=== PATIENT | female | born 1965 | race Hispanic/Latino ===

== ENCOUNTER 2019-03-03 21:37 | Inpatient (IN) ==
[2019-03-03 22:18] LABS: URINE SOURCE CLEAN CATCH
[2019-03-03 23:01] LABS: BILIRUBIN URINE NEGATIVE (NEGATIVE); BLOOD URINE TRACE (NEGATIVE); COLOR YELLOW; GLUCOSE URINE NEGATIVE (NEGATIVE); KETONE URINE NEGATIVE (NEGATIVE); LEUKOCYTES URINE MODERATE (NEGATIVE); NITRITE URINE NEGATIVE (NEGATIVE); PH URINE 7.5; PROTEIN URINE TRACE mg/dL (NEGATIVE); SP GRAVITY URINE 1.019; TURBIDITY URINE CLEAR (CLEAR); UR EPITHELIAL CELLS <10 /HPF (<10); URINE BACTERIA NEGATIVE /HPF; URINE RBC <10 /HPF (<10); URINE WBC 20-40 /HPF (<10); UROBILINOGEN URINE NORMAL (NORMAL)
[2019-03-04] MEDS ORDERED: ZOFRAN IM ONE (00:33)
[2019-03-04] MEDS ORDERED: BENTYL IM ONE (00:34)
--- NOTE | 2019-03-04 01:57 | PROVIDER DOCUMENTATION ---
This chart was entered by Ghislaine Bradshaw Scribe, acting as scribe for Carlyle Pantoja MD. HPI-Abdominal Pain/GI Problem - General Source: patient, interpreter deaf (ID: [id number] : interpreter deaf ID) - History of Present Illness-ABD Nature of Presenting Problems: Pt is 53/F presenting to ED w/ ABD pain and Nausea. Pt has hx of colorectal cancer and now has colostomy. Pt sts that she had beef tacos for dinner and then soon after started having epigastric pain and nausea. Denies any vomiting. Abdominal Pain Onset Location: reports: epigastric Pain Radiation: reports: no radiation Quality of Pain: reports: aching, other Severity in ED: reports: moderate Onset/Duration: reports: just prior to arrival Timing: reports: still present Activities at Onset: reports: none Exposure to sick contacts?: No Modifying Factors: improves with: nothing Associated Symptoms: reports: nausea. denies: diarrhea, vomiting Emesis Description: reports: none <Carlyle Pantoja - Last Filed: 03/04/19 19:00> <Julita Haley - Last Filed: 03/04/19 20:16> - General Chief Complaint: Abdominal Pain Stated Complaint: SEVERE STOMACH PAIN AFTER EATING Time Seen by Provider: 03/04/19 00:09 Allergies/Adverse Reactions: Patient Allergies Allergy/AdvReac Type Severity Reaction Status Date / Time No Known Allergies Allergy Verified 03/04/19 05:49 Home Medications: Home Medication List Medication Instructions Recorded Confirmed Last Taken Type NK [No Home Medications] 03/04/19 03/04/19 Unknown History Review of Systems - Adult - REVIEW OF SYSTEMS - ADULT Gastrointestinal: reports: see HPI <Carlyle Pantoja - Last Filed: 03/04/19 19:00> - REVIEW OF SYSTEMS - ADULT Constitutional: reports: no symptoms reported Eyes: reports: no symptoms reported Ears, Nose, Mouth & Throat: reports: no symptoms reported Cardiovascular: reports: no symptoms reported Respiratory: reports: no symptoms reported Gastrointestinal: reports: no symptoms reported Genitourinary: reports: no symptoms reported Musculoskeletal: reports: no symptoms reported Integumentary: reports: no symptoms reported Neurological: reports: no symptoms reported Psychiatric: reports: no symptoms reported Endocrine: reports: no symptoms reported Hematologic/Lymphatic: reports: no symptoms reported Allergic/Immunologic: reports: no symptoms reported All Other Systems: Reviewed and Negative <Julita Haley - Last Filed: 03/04/19 20:16> Past History - Adult - PAST MEDICAL HISTORY-ADULT Review of Records: reports: Old Records Reviewed, Nursing Assessment Review, Medications Reviewed, Social history reviewed & non-contributory. Major Childhood Illnesses: reports: denies history Cardiovascular: reports: denies history Respiratory: reports: denies history Gastrointestinal: reports: cancer Genitourinary: reports: denies history Musculoskeletal: reports: denies history Neurological: reports: denies history Psychiatric: reports: denies history Endocrine/Immune: reports: denies history Other Conditions: reports: denies history - SOCIAL HISTORY Smoking: denies, non-smoker <Carlyle Pantoja - Last Filed: 03/04/19 19:00> Physical Exam-General - CONSTITUTIONAL General Appearance: alert, mild distress - RESPIRATORY Respiratory: lungs clear, normal breath sounds - CARDIOVASCULAR Cardiovascular: normal peripheral pulses, regular rate, rhythm, no edema - GASTROINTESTINAL (ABDOMEN) Abdominal Exam: normal bowel sounds, soft, tenderness (epigastric area), other (colostomy bag in LLQ) - NEUROLOGIC Neurologic: grossly normal - PSYCHIATRIC Psych/Mental Status: normal thought content, normal thought process <Carlyle Pantoja - Last Filed: 03/04/19 19:00> Progress - PLAN OF CARE/RESULTS Progress/Plan/Lab Results: Vital Signs - 8 hr 03/03/19 21:48 Temperature 97.8 F Pulse Rate 74 Respiratory Rate 15 Blood Pressure 148/74 O2 Sat by Pulse Oximetry 100 Laboratory Results - last 24 hr 03/03/19 03/03/19 21:54 21:54 Urine Source CLEAN CATCH Urine Color YELLOW Urine Turbidity CLEAR Urine pH 7.5 Ur Specific [place] 1.019 Urine Protein TRACE A Ur Glucose (Stick) NEGATIVE Ur Ketones (Stick) NEGATIVE Urine Blood TRACE A Urine Nitrite NEGATIVE Urine Bilirubin NEGATIVE Urobilinogen Dipstick NORMAL Urine Leukocytes MODERATE A Urine WBC (Auto) 20-40 A Urine RBC (Auto) <10 U Epithel Cells (Auto) <10 Urine Bacteria (Auto) NEGATIVE Urine Test NEGATIVE Orders Category Date Time Status Saline Loc DIRECTED Care 03/03/19 22:09 Active NPO Diet 03/03/19 22:09 Active AMYLASE [CHEM] Stat Lab 03/03/19 22:10 Ordered CBC WITH ELECTRONIC DIFF [HEME] Stat Lab 03/03/19 22:10 Ordered COMPREHENSIVE METABOLIC PANEL [CHEM] Stat Lab 03/03/19 22:10 Ordered LIPASE [CHEM] Stat Lab 03/03/19 22:10 Ordered TEST-URINE [PREG] Stat Lab 03/03/19 21:54 Completed URINALYSIS W/POSS RFLX CULT [URINALYSIS] Stat Lab 03/03/19 21:54 Completed URINE CULTURE [RM] Routine Lab 03/03/19 23:36 Received Dicyclomine [Bentyl] Med 03/04/19 00:34 Discontinued 20 mg IM NOW ONE Ondansetron [Zofran] Med 03/04/19 00:33 Discontinued 8 mg IM NOW ONE Result Diagrams: 03/03/19 01:50 03/03/19 01:50 - CHANGE OF SHIFT REPORT (ED Provider) 1 Report Given and Care Transferred to:: Dr. Julita Haley Time of Transfer: 02:00 Items Pending: Labs (Pt Hx, PE and pt care discussed, pending labs.) <Lake-Carlyle Caballero - Last Filed: 03/04/19 19:00> - PLAN OF CARE/RESULTS Progress/Plan/Lab Results: Vital Signs - 8 hr 03/03/19 21:48 Temperature 97.8 F Pulse Rate 74 Respiratory Rate 15 Blood Pressure 148/74 O2 Sat by Pulse Oximetry 100 Laboratory Results - last 24 hr 03/03/19 03/03/19 03/03/19 01:50 01:50 21:54 WBC 14.36 H RBC 4.75 Hgb 14.1 Hct 43.4 MCV 91.4 MCH 29.7 MCHC 32.5 L RDW Std Deviation 13.2 Plt Count 349 MPV 9.6 Immature Gran % (Auto) 0.3 Neut % (Auto) 71.1 Lymph % (Auto) 24.1 Wilson % (Auto) 4.3 Eos % (Auto) 0.1 Baso % (Auto) 0.1 Immature Gran # (Auto) 0.04 Neut # (Auto) 10.20 H Lymph # (Auto) 3.46 H Wilson # (Auto) 0.62 H Eos # (Auto) 0.02 Baso # (Auto) 0.02 Sodium 141 Potassium 4.0 Chloride 102 Carbon Dioxide 25 Anion Gap 14 BUN 15 Creatinine 0.6 Estimated GFR/1.73 m2 > 60 BUN/Creatinine Ratio 25 Glucose 142 H Calculated Osmolality 285 Calcium 9.5 Total Bilirubin 0.26 AST 24 ALT 33 Alkaline Phosphatase 92 Total Protein 8.2 Albumin 4.5 Globulin 3.7 Albumin/Globulin Ratio 1.2 Amylase 55 Lipase 25 Urine Source Urine Color Urine Turbidity Urine pH Ur Specific [place] Urine Protein Ur Glucose (Stick) Ur Ketones (Stick) Urine Blood Urine Nitrite Urine Bilirubin Urobilinogen Dipstick Urine Leukocytes Urine WBC (Auto) Urine RBC (Auto) U Epithel Cells (Auto) Urine Bacteria (Auto) Urine Test NEGATIVE 03/03/19 21:54 WBC RBC Hgb Hct MCV MCH MCHC RDW Std Deviation Plt Count MPV Immature Gran % (Auto) Neut % (Auto) Lymph % (Auto) Wilson % (Auto) Eos % (Auto) Baso % (Auto) Immature Gran # (Auto) Neut # (Auto) Lymph # (Auto) Wilson # (Auto) Eos # (Auto) Baso # (Auto) Sodium Potassium Chloride Carbon Dioxide Anion Gap BUN Creatinine Estimated GFR/1.73 m2 BUN/Creatinine Ratio Glucose Calculated Osmolality Calcium Total Bilirubin AST ALT Alkaline Phosphatase Total Protein Albumin Globulin Albumin/Globulin Ratio Amylase Lipase Urine Source CLEAN CATCH Urine Color YELLOW Urine Turbidity CLEAR Urine pH 7.5 Ur Specific [place] 1.019 Urine Protein TRACE A Ur Glucose (Stick) NEGATIVE Ur Ketones (Stick) NEGATIVE Urine Blood TRACE A Urine Nitrite NEGATIVE Urine Bilirubin NEGATIVE Urobilinogen Dipstick NORMAL Urine Leukocytes MODERATE A Urine WBC (Auto) 20-40 A Urine RBC (Auto) <10 U Epithel Cells (Auto) <10 Urine Bacteria (Auto) NEGATIVE Urine Test Orders Category Date Time Status Saline Loc DIRECTED Care 03/03/19 22:09 Active NPO Diet 03/03/19 22:09 Active AMYLASE [CHEM] Stat Lab 03/03/19 01:50 Completed CBC WITH ELECTRONIC DIFF [HEME] Stat Lab 03/03/19 01:50 Completed COMPREHENSIVE METABOLIC PANEL [CHEM] Stat Lab 03/03/19 01:50 Completed LIPASE [CHEM] Stat Lab 03/03/19 01:50 Completed TEST-URINE [PREG] Stat Lab 03/03/19 21:54 Completed URINALYSIS W/POSS RFLX CULT [URINALYSIS] Stat Lab 03/03/19 21:54 Completed URINE CULTURE [RM] Routine Lab 03/03/19 23:36 Received Dicyclomine [Bentyl] Med 03/04/19 00:34 Discontinued 20 mg IM NOW ONE Ondansetron [Zofran] Med 03/04/19 00:33 Discontinued 8 mg IM NOW ONE Result Diagrams: 03/03/19 01:50 03/03/19 01:50 - REASSESSMENT Reassessment #1 Status: improving (pt signed out to me pending labs results, pt with continued pain and reports that she has not had any output from her ostomy since yesterday. Concerning for SBO will further evaluate with CT.) Reassessment #2 Status: improving (Pain improved, CT consistent with SBO. NG placed and will admit. Discussed case with Dr. Zuniga, general surgeon control supervisor who will evaluate pt this am and would like pt admitted to the hospitalist. Discussed case with Dr. Lockett, Hospitalist, who will see and admit pt.) - CT/MRI 1 CT Study: Abdomen, Pelvis Impression: Abnormal (Per radiologist read: "early complete vs partial SBO involving the distal small bowel likely due to adhesions") <Julita Haley - Last Filed: 03/04/19 20:16> Departure - Departure Date of Disposition Decision: 03/04/19 Certified Medical Emergency: Emergent - Critical Care Note This patient required my direct & personal management of CC.: No <Carlyle Pantoja - Last Filed: 03/04/19 19:00> - Departure Time of Disposition Decision: 05:39 <Julita Haley - Last Filed: 03/04/19 20:16> - Departure DIAGNOSIS: Small bowel obstruction Disposition: ADMITTED INPATIENT 09 Condition: Stable Attestation - Physician/ ARIAN Attestation Patient care was provided by Advanced Practice Provider:: No The physician spent face to face time with patient:: Yes Advanced Practice Provider documentation review:: Supervising physician onsite and consulted in the evaluation and care of this patient. The physician did have a face to face encounter with the patient. <Carlyle Pantoja - Last Filed: 03/04/19 19:00> This chart was documented by the indicated scribe, (Ghislaine Bradshaw, Scribe) and accurately reflects the services I performed and decisions made by me, Carlyle Deutsch MD, as attested by the provider's signature.
[2019-03-04 02:02] LABS: BASO# 0.02 X1000 (0.0-0.2); BASO% 0.1 % (0.0-0.8); EOS# 0.02 X1000 (0.0-0.7); EOS% 0.1 % (0.0-10.0); HEMATOCRIT 43.4 % (37.0-47.0); HEMOGLOBIN 14.1 g/dL (12.0-16.0); IMM GRAN# 0.04 X1000 (0.0-0.04); IMM GRAN% 0.3 % (0.0-0.5); LYMPH# 3.46 X1000 (1.2-3.4); LYMPH% 24.1 % (20.5-51.1); MCH 29.7 PG (27-31); MCHC 32.5 g/dL (33-37); MCV 91.4 FL (81-99); MONO# 0.62 X1000 (0.11-0.59); MONO% 4.3 % (1.7-9.3); MPV 9.6 FL (7.4-10.4); NEUT% 71.1 % (42.2-75.2); PLT 349 X1000 (130-400); RBC 4.75 XMIL (4.2-5.4); RDW 13.2 % (11.5-14.5); WBC 14.36 X1000 (4.8-10.8)
[2019-03-04 02:42] LABS: AGAP 14; ALB/GLOB RATIO 1.2; ALBUMIN 4.5 g/dL (3.5-5.0); ALKALINE PHOSPHATASE 92 U/L (32-104); AMYLASE 55 U/L (20-200); BUN 15 mg/dL (8-22); CALCIUM 9.5 mg/dL (8.8-10.2); CHLORIDE 102 mmol/L (98-107); COSMO 285; CREATININE 0.6 mg/dL (0.5-0.9); ESTIMATED GFR > 60; GLUCOSE 142 mg/dL (70-104); GOT 24 U/L (10-30); GPT 33 U/L (10-36); LIPASE 25 U/L (13-60); SODIUM 141 mmol/L (136-145); TCO2 25 mmol/L (25-35); TOTAL BILIRUBIN 0.26 mg/dL (0.20-1.00); TOTAL PROTEIN 8.2 g/dL (6.3-8.3)
[2019-03-04] MEDS ORDERED: ZOFRAN IV ONE ×2 (03:00→09:01)
[2019-03-04] MEDS ORDERED: MORPHINE IV ONE ×2 (03:00→09:01)
[2019-03-04] MEDS ORDERED: NS 1,000 ML IV ONE (03:00)
[2019-03-04] MEDS ORDERED: XYLOCAINE 2% VISCOUS MT ONE (05:41)
--- NOTE | 2019-03-04 06:59 | Diag Imaging Result Doc PS360 ---
EXAM: CHEST-PORTABLE 03/04/2019 HISTORY: NG Tube Placment. TECHNIQUE: AP portable at 0640 COMMENT: There is an NG tube with its tip below the diaphragm presumably in the stomach. Inspiration is suboptimal. There are no previous studies. The lungs appear to be essentially clear. IMPRESSION: NG tube in the stomach. Electronically signed by Andrew Martinez 03/04/2019 6:56 AM
--- NOTE | 2019-03-04 07:02 | Diag Imaging Result Doc PS360 ---
EXAM: KUB ABDOMEN 03/04/2019 HISTORY: NG Tube Placement. TECHNIQUE: KUB COMMENT: The NG tube tip is in the antrum of the stomach. There is contrast excreted from both kidneys and filling the bladder. There is a nonspecific bowel gas pattern. There is no evidence organomegaly or mass. IMPRESSION: NG tube in the stomach. No evidence of hydronephrosis or other acute abnormality. Electronically signed by Andrew Martinez 03/04/2019 6:59 AM
--- NOTE | 2019-03-04 08:47 | Diag Imaging Result Doc PS360 ---
EXAM: CT ABD/PELVIS W/IV CONT ONLY INDICATION: abdominal pain r/o obstruction TECHNIQUE: This exam was performed using automated exposure control, adjustment of mA or kV according to patient size, and/or use of iterative reconstruction technique. COMPARISON: None. FINDINGS: There is moderate hepatic steatosis. The gallbladder, spleen, pancreas, and adrenal glands are essentially unremarkable. The kidneys are essentially unremarkable. The urinary bladder is partially distended and is unremarkable, otherwise. The reproductive tract is grossly unremarkable as imaged. There has been a prior partial colon resection and there is a patent colostomy at the left lower quadrant. There are moderately distended loops of the mid to distal small bowel in the pelvis with internal feculent material. The distal ileum is decompressed. This distention is suspicious for partial or early complete bowel obstruction. There is trace free fluid around loops of bowel in the pelvis. No free abdominal gas is appreciated. The remainder of the GI tract is essentially unremarkable. IMPRESSION: 1.Moderately distended loops of small bowel in the pelvis with internal feculent material suspicious for partial versus early complete bowel obstruction. 2.Other incidental/nonacute findings detailed above. Electronically signed by Hammad Mendez 03/04/2019 8:45 AM
[2019-03-04] MEDS: MORPHINE IV PRN ×3 (12:07→23:30)
[2019-03-04] MEDS: NS 1,000 ML IV SCH (12:07)
[2019-03-04] MEDS: ZOFRAN IV PRN (12:10)
[2019-03-04] MEDS: KEFZOL 1 GM/D5W 1 GM/50 ML IVPB IV SCH ×2 (13:27→20:43)
[2019-03-04] MEDS ORDERED: SODIUM CHLORIDE 0.9% INJ ONE (14:04)
[2019-03-04] MEDS ORDERED: PHENERGAN IV ONE (14:05)
[2019-03-04] MEDS: PROTONIX IV SCH (14:48)
[2019-03-04] MEDS: SODIUM CHLORIDE 0.9% INJ SCH (14:48)
--- NOTE | 2019-03-04 18:24 | HEMO/ONC CONSULTATION ---
DATE: 03/03/2019 PATIENT NAME: Kay Trinh (Per). REQUESTING PHYSICIAN: Dr. Edwards. We appreciate this consult. CHIEF COMPLAINT: Colon cancer. HISTORY OF PRESENT ILLNESS: Ms. Albarado is a very pleasant, 53-year-old, female, well known to Dr. Urias with a history of recurrent colon adenocarcinoma. The patient has a history of complete obstruction and is status post partial resection with colostomy placement. She has completed adjuvant chemotherapy. The patient is followed regularly in clinic and has been doing fairly well until the day of admission. The patient reports that she ate dinner last night and then began having epigastric pain and nausea. The patient denies any vomiting. The patient presented to [facility] Emergency Department where she was examined. CT of the abdomen and pelvis were obtained which revealed moderately distended loops of small bowel in the pelvis with internal feculent material suspicious for partial versus early complete bowel obstruction. The patient was admitted for the same and we are consulted as she is well known to us with a history of colon adenocarcinoma. PAST MEDICAL HISTORY: 1. Colon adenocarcinoma. 2. Iron deficiency anemia. 3. Neuropathy. PAST SURGICAL HISTORY: Partial colectomy with colostomy placement. FAMILY HISTORY: Negative for any hematologic or oncologic disease. SOCIAL HISTORY: The patient does not use tobacco, alcohol, or illicit drugs. She lives at home with a supportive family. MEDICATIONS ON ADMISSION: 1. Dicyclomine. 2. Ondansetron. ALLERGIES: Patient has no known drug allergies. REVIEW OF SYSTEMS: A 14 point review of systems was obtained and is negative except as mentioned in HPI. PHYSICAL EXAMINATION: General: Ms. Albarado is a very pleasant, 53-year-old female lying supine in bed in no immediate distress. HEENT: Normocephalic, atraumatic. Mucous membranes are pink and moist. Sclerae anicteric. Extraocular movements intact. Neck: Supple. Lungs: Clear to auscultation bilaterally. Chest expansion equal bilaterally. CV: S1, S2 heard. No murmurs, rubs or gallops. Abdomen: Slightly distended and soft. Tender to palpation throughout. Bowel sounds are decreased throughout. Extremities: Without clubbing, cyanosis, or edema. Dermatologic: No rashes bruises or lesions. Neurologic: The patient is awake, alert, and oriented x3 and has no focal motor deficit. LABORATORY DATA: Hemoglobin 14.1, hematocrit 43.4, white blood cell count 14.36, platelets 349,000. Sodium 141, potassium 4.0, chloride 102, CO2 25, BUN 15, creatinine 0.6, and glucose is 142. Urinalysis is negative for urinary tract infection. ASSESSMENT AND PLAN: 1. T3,N0,M0 sigmoid adenocarcinoma, status post partial resection and permanent colostomy, as well as adjuvant chemotherapy/radiation treatment. The patient has been followed in clinic regularly with regular imaging. However, the patient presents to [facility] with questionable bowel obstruction. We agree with consulting Surgery. The patient will be scheduled for colonoscopy on Thursday. We will follow along and make recommendations pending outcomes. 2. Nausea, secondary to number 1. Would continue Zofran as ordered. 3. We will follow along with you and make further recommendations pending outcomes. The above reflects the history, exam, assessment, and plan of Dr. Urias. Dictated by SERGEY Aggarwal for David Urias MD cc: SERGEY Aggarwal MD
--- NOTE | 2019-03-04 19:05 | HISTORY AND PHYSICAL ---
PRIMARY CARE PHYSICIAN: The patient does not have a layup worker. CHIEF COMPLAINT: Abdominal pain. HISTORY OF PRESENT ILLNESS: Ms. Trinh is a 53-year-old, female, who came to the ER today complaining of abdominal pain. This started last p.m. She has also had some vomiting with this abdominal pain. The patient states that she had a partial colectomy done over 6 years ago with end-colostomy placed due to cancer of the colorectal, and is followed by Dr. Urias routinely for this cancer. She states that her colostomy has not put out anything since yesterday and after she ate dinner last night she started vomiting. The patient is lying in the ER stretcher with a NG tube in place to low wall suction. She complains of some abdominal tenderness upon palpation. Bowel sounds are present. The patient denies any blood in her stool. Denies any vomiting of blood. The patient does not appear to be short of breath or having any other problems noted. Hospital phone flight teacher used for this History and Physical PAST MEDICAL HISTORY: Cancer of the colorectal with colostomy placement. Chemotherapy after her colorectal surgery. The patient states she also has been seeing Dr. Urias for some sort of a spot on her lung, not sure if it is cancerous. The patient states she saw Dr. Urias in January. PAST SURGICAL HISTORY: Colostomy placement 6 years ago at [facility] by Dr. Felix. The patient has also had a had a port placed to her left subclavian that has since been removed. This was for her chemotherapy 6 years ago. FAMILY HISTORY: Mother had diabetes and from a heart attack. Father at a young age from colorectal cancer. MEDICATIONS: The patient states she does not take any home medications. ALLERGIES: No known drug allergies. LABS AND DIAGNOSTICS: Sodium 141, potassium 4.0, carbon dioxide 25, BUN 15, creatinine 0.6, glucose 142, bilirubin 0.26, AST 24, ALT 33, alkaline phosphatase 92, amylase 55, lipase 25. White blood cell count 14.36, hemoglobin 14.1, hematocrit 43.4, platelets 349. Urinalysis negative. Urine culture shows no growth at this present time. CT of the abdomen and pelvis done on 03/04, shows moderately distended bowel loops in the pelvis with internal feculent material suspicious for partial versus early complete bowel obstruction. Abdominal x-ray done on 03/04 shows an NG tube in the stomach with no hydronephrosis or other acute abnormality. Chest x-ray done on 03/04, shows lungs are clear. REVIEW OF SYSTEMS: A 14 point review of system was done. All negative except for what is stated above in HPI. PHYSICAL EXAM: VITALS: Pulse rate 75, respiratory rate 18, blood pressure 124/63, temperature 97.8, O2 saturation 97% on room air. GENERAL: This is a 53-year-old, female, lying in bed, in no acute distress. Able to answer questions appropriately with flight teacher. HEENT: Atraumatic, normocephalic. Eyes, pupils equal, round, reactive to light. No extraocular movement identified. Sclerae icteric. Mucous membranes dry. NECK: Supple. No lymphadenopathy. Trachea is midline. No JVD. CV: No murmur, gallop, or rub. Regular rate and rhythm noted. S1, S2 noted. RESPIRATORY: Lungs are clear. Equal to chest expansion. The patient is nonlabored and does not use accessory muscles. GI: Abdomen is soft and tender to palpation. Bowel sounds are present. There is a colostomy noted to the left quadrant. : Patient denies any dysuria. States urine has been clear. NEURO: The patient is awake, alert, and oriented. Able to answer all questions appropriately and follows commands. Cranial nerves intact. MUSCULOSKELETAL: Full strength noted. No deformities. EXTREMITIES: No clubbing, cyanosis, or edema noted. DP and PT pulses are palpable +2. SKIN: Warm, dry, intact. No rashes, bruises noted. ASSESSMENT AND PLAN: 1. Small bowel obstruction. Dr. Felix is consulted. Nasogastric tube is intact to low wall suction. Will keep the patient n.p.o. and give nausea medicines and pain medicines as needed. 2. Colon cancer and possible lung spot. Dr. Urias-consulted. The patient is known to him. 3. Abdominal pain, p.r.n. pain medications ordered. 4. Colostomy management. Wound care consulted for management of the colostomy. Will admit to the medical floor consult Dr. Felix and Dr. Kumar. Will repeat all labs in the morning and continue IV hydration. Nausea and pain medications for this patient. Dictated by SERGEY Frausto for Evangelist Edwards MD cc: MD David Jain MD Hugh C. Nabers, MD Patient seen and examined by me. Presenting with vomiting related to bowel obstruction. I agree with the assessment and plan of the REFERRAL AND INFORMATION AIDE. Dr. Edwards. [facility]
--- NOTE | 2019-03-04 19:32 | GASTROENTEROLOGY CONSULTATION ---
DATE: 03/04/2019 REASON FOR CONSULTATION: History of rectal cancer who presents with small-bowel obstruction. HISTORY OF PRESENT ILLNESS: Ms Kay Trinh is a 53-year-old woman with past medical history of rectal cancer status post APR about 31 years ago and chemoradiation with recurrence 5 years ago requiring partial colectomy and revision of her colostomy by Dr. Felix and chemotherapy as well. She presents today with acute onset nausea, vomiting, abdominal pain that started around 9:30 last evening. She was at her usual state of health prior to this. She says that she had tacos that evening and then several hours later started having abdominal pain. Her pain is severe 10/10 diffuse. She has not had a bowel movement since last evening. She typically has 2 normal bowel movements per day. No rectal bleeding, hematemesis, fevers, chest pain, shortness of breath, abnormal weight loss. She is followed by Dr. Urias and is in clinical remission. No sick contacts. She is not on any medications. REVIEW OF SYSTEMS: As per HPI, otherwise 12 point review of systems is negative. PAST MEDICAL HISTORY: As per HPI. PAST SURGICAL HISTORY: APR 31 years ago 5 years ago required partial colectomy for recurrence. FAMILY HISTORY: Father with presumably colon cancer. SOCIAL HISTORY: No smoking, alcohol or drug use. MEDICATIONS: None. ALLERGIES: No known drug allergies. PHYSICAL EXAMINATION: Vital Signs: Temperature is 98.6 degrees, heart rate is 73, respiratory rate 20, blood pressure 135/61, O2 saturation 100% on room air. General: The patient is ill- appearing in acute distress from nausea, vomiting, and abdominal pain. HEENT: Sclerae anicteric. Extraocular motor intact. Moist mucous membranes. NG tube in place with bilious fluid draining. Neck: Supple. No JVD. Cardiac: Regular rate and rhythm. No murmurs, rubs, or gallops. Lungs: Clear to auscultation bilaterally. Abdomen: Midline laparotomy scar with left lower quadrant colostomy with no air or stool in the bag. Her upper abdomen is distended and tender throughout. No rebound or guarding. Extremities: No clubbing, cyanosis, or edema. Neurologic: Nonfocal. LABS: White count of 14.3, hemoglobin 14.4, platelets of 349,000. CMP is unremarkable other than glucose of 142. UA shows moderate leuk esterase, trace blood and protein. Urine culture is pending. IMAGING: CT abdomen and pelvis with IV contrast shows moderately distended loops of small bowel in the pelvis with internal fecal material suspicious for partial versus early complete bowel obstruction. There is also prior proximal colon resection, patent colostomy at the left lower quadrant. The distal ileum is decompressed. The remainder of the GI tract is essentially unremarkable. KUB after NG tube placement shows nonspecific gas bowel pattern. ASSESSMENT AND PLAN: Ms. Kay Trinh is a 53-year-old woman with a remote history of rectal cancer status post abdominoperineal resection and recurrence requiring partial colectomy and chemoradiation who presents with acute onset nausea, vomiting, abdominal pain with CT findings consistent with partial versus complete bowel obstruction of the small bowel. She has not had any blood in her ostomy or abnormal weight loss to suggest recurrence of her underlying malignancy. She is currently being treated conservatively with NPO status, NG tube to low intermittent wall suction, antiemetics, intravenous fluids and pain control. Dr. Felix is following who is her primary surgeon. Her labs are notable for leukocytosis and mild hyperglycemia and pyuria. She is also on cefazolin empirically for antibiotics and a PPI once daily. The patient will likely need ultimately a colonoscopy once her bowel obstruction resolves, not quite so sure if this will happen as an inpatient given her clinical status currently. We will follow along. Please call with any questions or concerns.
[2019-03-05] MEDS: MORPHINE IV PRN ×3 (04:09→17:00)
[2019-03-05] MEDS: NS 1,000 ML IV SCH ×2 (04:10→13:20)
[2019-03-05] MEDS: KEFZOL 1 GM/D5W 1 GM/50 ML IVPB IV SCH ×3 (04:10→20:30)
[2019-03-05] MEDS: ZOFRAN IV PRN ×2 (04:14→10:25)
[2019-03-05 07:45] LABS: BASO# 0.01 X1000 (0.0-0.2); BASO% 0.1 % (0.0-0.8); EOS# 0.01 X1000 (0.0-0.7); EOS% 0.1 % (0.0-10.0); HEMOGLOBIN 13.1 g/dL (12.0-16.0); LYMPH# 2.45 X1000 (1.2-3.4); LYMPH% 28.4 % (20.5-51.1); MCH 30.9 PG (27-31); MCHC 32.8 g/dL (33-37); MCV 94.3 FL (81-99); MONO# 0.68 X1000 (0.11-0.59); MONO% 7.9 % (1.7-9.3); NEUT# 5.48 X1000 (1.4-6.5); NEUT% 63.5 % (42.2-75.2); PLT 294 X1000 (130-400); RBC 4.24 XMIL (4.2-5.4); RDW 13.9 % (11.5-14.5); WBC 8.63 X1000 (4.8-10.8)
[2019-03-05 07:59] LABS: AGAP 11; BUN 16 mg/dL (8-22); CALCIUM 8.4 mg/dL (8.8-10.2); CHLORIDE 105 mmol/L (98-107); CK PROFILE 136 U/L (24-173); COSMO 288; CREATININE 0.5 mg/dL (0.5-0.9); ESTIMATED GFR > 60; GLUCOSE 127 mg/dL (70-104); MAGNESIUM 2.2 mg/dL (1.5-2.7); POTASSIUM 3.4 mmol/L (3.5-5.1); SODIUM 143 mmol/L (136-145); TCO2 27 mmol/L (25-35)
--- NOTE | 2019-03-05 08:47 | Diag Imaging Result Doc PS360 ---
EXAM: FLAT/UPRIGHT ABD/1 VIEW CHEST INDICATION: PARTIAL SBO TECHNIQUE: 3 views COMPARISON: 03/04/2019 FINDINGS: The NG tube is in stable position. Patchy small bowel gas with mild distention is essentially stable. There is no evidence of large volume free abdominal gas. There is no evidence of organomegaly. The lungs are grossly clear. There is no discrete pleural fluid collection or pneumothorax. The cardiomediastinal silhouette and central vasculature are grossly unremarkable. IMPRESSION: Essentially stable abdomen. Electronically signed by Hammad Mendez 03/05/2019 8:45 AM
[2019-03-05] MEDS ORDERED: RELISTOR SUBQ ONE (14:40)
[2019-03-05] MEDS: POTASSIUM CHLORIDE 20 MEQ/SWI 20 MEQ/100 ML IVPB IV SCH ×2 (16:31→21:13)
--- NOTE | 2019-03-05 16:40 | PROGRESS NOTE ---
DATE: 03/05/2019 SUBJECTIVE: This morning Ms. Trinh refers to be doing a little better. Still hurting in the abdomen and no output in the ostomy bag. OBJECTIVE: Vital signs: Her blood pressure is 126/57, pulse of 74, respirations 20, temperature 98.8 degrees. The patient was saturating 98% on room air. On general exam, Ms. Trinh is a 53- year-old female. She is in bed, no distress. Mucosa is pink and moist. Anicteric. Acyanotic. Neck is supple. Chest is clear to auscultation.Cardiovascular: Regular rate and rhythm. Abdomen is soft. Minimally tender all over, but no rebound. There is an old midline surgical scar. There is also a left side ostomy bag which is completely clean. Bowel sounds are extremely hypoactive. Extremities: No pedal edema. PATIENT RELATIONS LIAISON: The patient is awake, alert and oriented. LABORATORY DATA: WBC is 8.63, hemoglobin is 13.1, platelet count of 294,000. Chemistry is also reviewed. Potassium is 3.4. Magnesium is normal. DIAGNOSTIC DATA: Imaging studies from yesterday have all been reviewed. A KUB this morning shows no evidence of large-volume free abdominal gas, patchy small-bowel gas with mild distention is essentially stable. ASSESSMENT AND PLAN: 1. Partial small-bowel obstruction. The patient has nasogastric tube for gastric decompression. Dr. Felix is currently on board. 2. Abdominal pain secondary to partial small-bowel obstruction with some constipation. 3. Constipation. We think there could be opioid-induced association with this, so we will give the patient methylnaltrexone to help with bowel movement. 4. History of colorectal cancer. The patient is status post multiple laparotomies with currently an ostomy bag. 5. Mild hypokalemia. We will replenish this. cc: Imer Conde MD
[2019-03-05] MEDS: PROTONIX IV SCH (17:03)
--- NOTE | 2019-03-05 17:47 | PROVIDER PROGRESS NOTE ---
Progress Note SUBJECTIVE: No acute overnight events. Afebrile. Mild nausea without vomiting. OBJECTIVE: VS reviewed and stable GEN: awake, alert, NAD HEENT: anicteric, MMM, EOMI, NGT in place with brown liquid in reservior NECK: supple, no jvd CV: RRR, mumurs PULM: CTAB, no wheezing ABD: lap scar, LLQ with colostomy with air or stool in colostomy bag, tympanic, hypoactive BS, mild diffuse TTP EXT: no cce NEURO: nonfocal LABS: Reviewed A/P: Ms. Kay Trinh is a 53-year-old woman with a remote history of rectal cancer status post abdominoperineal resection and sigmoid CRC requiring partial colectomy s/p chemoradiation who presented with SBO likely from abdominal adhesion. Her vomiting has improved but she continues to have copious output via NGT and has not had a bowel movement since admission. She is on empiric antibiotics #SBO: continue supportive treatment with antiemetics, NPO, pain control #History of CRC: in remission #Leukocytosis: noted, on empiric antibiotics Will follow with you.
[2019-03-06] MEDS: KEFZOL 1 GM/D5W 1 GM/50 ML IVPB IV SCH ×3 (04:57→23:19)
[2019-03-06 07:44] LABS: BASO# 0.01 X1000 (0.0-0.2); BASO% 0.1 % (0.0-0.8); EOS# 0.04 X1000 (0.0-0.7); EOS% 0.5 % (0.0-10.0); HEMATOCRIT 38.7 % (37.0-47.0); HEMOGLOBIN 12.2 g/dL (12.0-16.0); LYMPH# 1.97 X1000 (1.2-3.4); LYMPH% 23.6 % (20.5-51.1); MCH 29.8 PG (27-31); MCHC 31.5 g/dL (33-37); MCV 94.6 FL (81-99); MONO# 0.65 X1000 (0.11-0.59); MONO% 7.8 % (1.7-9.3); MPV 9.7 FL (7.4-10.4); NEUT# 5.68 X1000 (1.4-6.5); PLT 316 X1000 (130-400); RBC 4.09 XMIL (4.2-5.4); RDW 13.6 % (11.5-14.5); WBC 8.35 X1000 (4.8-10.8)
[2019-03-06 08:00] LABS: AGAP 12; BUN 14 mg/dL (8-22); CALCIUM 8.1 mg/dL (8.8-10.2); CHLORIDE 107 mmol/L (98-107); COSMO 295; CREATININE 0.5 mg/dL (0.5-0.9); ESTIMATED GFR > 60; GLUCOSE 99 mg/dL (70-104); POTASSIUM 3.3 mmol/L (3.5-5.1); SODIUM 148 mmol/L (136-145); TCO2 29 mmol/L (25-35)
[2019-03-06] MEDS ORDERED: D5 1/2 NS + KCL 20 MEQ 1,000 ML IV SCH (10:15)
[2019-03-06] MEDS: NS 1,000 ML IV SCH (10:56)
--- NOTE | 2019-03-06 10:59 | PROVIDER PROGRESS NOTE ---
Progress Note SUBJECTIVE: Patient had a bowel movement yesterday afternoon with complete resolution of abdominal pain and nausea/vomiting. She has not required any pain medications or antiemetics since then. Currently, she denies abdominal pain, N/V/F, CP, SOB. She is inquiring when NGT can be removed. OBJECTIVE: Last Vital Signs Temp 99.3 F 03/06/19 08:00 Pulse 78 03/06/19 08:00 Resp 20 03/06/19 08:00 BP 129/62 03/06/19 08:00 Pulse Ox 100 03/06/19 08:00 Height 5 ft 2 in Weight 134 lb GEN: awake, alert, NAD HEENT: anicteric, MMM, NGT in place NECK: supple, no JVD CV: RRR, no murmurs PULM: CTAB no wheezing ABD: soft, NT/ND, LLQ colostomy with scant liquid light brown stool EXT: no cce NEURO: nonfocal LABS 03/05/19 03/05/19 03/05/19 07:26 07:26 07:26 WBC 8.63 Hgb 13.1 Plt Count 294 Sodium 143 Potassium 3.4 L Chloride 105 Carbon Dioxide 27 BUN 16 Creatinine 0.5 Glucose 127 H Carcinoembryonic Ag 0.8 03/06/19 03/06/19 07:15 07:15 WBC 8.35 Hgb 12.2 Plt Count 316 Sodium 148 H Potassium 3.3 L Chloride 107 Carbon Dioxide 29 BUN 14 Creatinine 0.5 Glucose Carcinoembryonic Ag KUB pending A/P: Ms. Kay Trinh is a 53-year-old woman with a remote history of rectal cancer status post abdominoperineal resection and sigmoid CRC requiring partial colectomy s/p chemoradiation who presented with SBO likely from adhesions. Her symptoms have resolved with supportive care. She is followed by Dr. Walter as outpatient and is due for surveillance colonoscopy with him in the fall. I would recommend outpatient colonoscopy done in the next several weeks as an outpatient. #SBO: trial of clear liquid diet; recommend removal of NGT #History of CRC: in remission; CEA normal; outpatient colonoscopy with Dr. Walter. CRC recurrence doubtful #Leukocytosis: resolved; stop antibiotics as UC was negative and VSS #Hypernatremia: 2/2 to volume depletion #Hypokalemia: replete lytes prn Will follow with you. Please call with questions.
--- NOTE | 2019-03-06 13:19 | Diag Imaging Result Doc PS360 ---
EXAM: FLAT/UPRIGHT ABD/1 VIEW CHEST INDICATION: partial sbo TECHNIQUE: 3 views COMPARISON: 03/05/2019 FINDINGS: The NG tube is in stable position. There are a few mildly gas distended loops of small bowel in the right lower quadrant and lower mid abdomen. The degree of distention appears to have improved slightly as compared to the previous study. There is no evidence of large volume free abdominal gas. There is no evidence of organomegaly. The lungs are grossly clear. There is no discrete pleural fluid collection or pneumothorax. The cardiomediastinal silhouette and central vasculature are grossly unremarkable. IMPRESSION: Mildly distended gas-filled loops of small bowel that appear to have improved slightly since the previous study. Electronically signed by Hammad Mendez 03/06/2019 1:17 PM
[2019-03-06] MEDS ORDERED: POTASSIUM CHLORIDE 40 MEQ/SWI 40 MEQ/100 ML IVPB IV ONE (17:19)
--- NOTE | 2019-03-06 17:41 | PROGRESS NOTE ---
DATE: 03/06/2019 SUBJECTIVE: Patient doing well. Not in any obvious distress. She is told tolerating orally now. OBJECTIVE: Vital signs: Temperature 99 degrees, pulse 96, respiratory rate 20, blood pressure 122/63, oxygen 99%. HEENT: Atraumatic, normocephalic. Cardiovascular: S1, S2. Respiratory: Has evidence of good air entry bilaterally. Abdomen: Soft, nontender. No masses felt. Extremities: No evidence of edema. Central nervous system: No obvious focal deficits noted. LABS: WBC 8.35, hematocrit 38.7, with a platelet count of 316. Sodium is 148, potassium 3.3, chloride is 107, bicarb is 29, BUN is 14, creatinine 0.5. ASSESSMENT AND PLAN: 1. Partial small bowel obstruction. 2. History of colon cancer. 3. Mild hypokalemia. PLAN: The patient seemed to be tolerating orally now. We will continue to follow up on clinical progression. Replace potassium level and possibly plan for discharge in the next 1 or 2 days. cc: Evangelist Edwards MD
[2019-03-06] MEDS: PROTONIX IV SCH (18:43)
[2019-03-06] MEDS: POTASSIUM CHLORIDE 20 MEQ/SWI 20 MEQ/100 ML IVPB IV SCH (19:38)
[2019-03-06] MEDS ORDERED: NS + KCL 20 MEQ 1,000 ML IV SCH (22:00)
[2019-03-07] MEDS: POTASSIUM CHLORIDE 20 MEQ/SWI 20 MEQ/100 ML IVPB IV SCH (02:15)
[2019-03-07] MEDS: KEFZOL 1 GM/D5W 1 GM/50 ML IVPB IV SCH ×2 (04:00→12:02)
[2019-03-07 07:39] LABS: BASO# 0.02 X1000 (0.0-0.2); BASO% 0.3 % (0.0-0.8); EOS# 0.05 X1000 (0.0-0.7); EOS% 0.8 % (0.0-10.0); HEMATOCRIT 36.3 % (37.0-47.0); HEMOGLOBIN 11.7 g/dL (12.0-16.0); LYMPH# 1.54 X1000 (1.2-3.4); MCH 30.3 PG (27-31); MCHC 32.2 g/dL (33-37); MONO# 0.49 X1000 (0.11-0.59); MPV 10.1 FL (7.4-10.4); NEUT# 4.06 X1000 (1.4-6.5); NEUT% 65.9 % (42.2-75.2); PLT 285 X1000 (130-400); RBC 3.86 XMIL (4.2-5.4); RDW 13.2 % (11.5-14.5); WBC 6.16 X1000 (4.8-10.8)
[2019-03-07] MEDS ORDERED: NS + KCL 20 MEQ 1,000 ML IV SCH (08:17)
[2019-03-07 08:28] VITALS: BP 101/55
[2019-03-07 09:18] LABS: AGAP 10; BUN 11 mg/dL (8-22); CALCIUM 8.6 mg/dL (8.8-10.2); CHLORIDE 107 mmol/L (98-107); COSMO 285; CREATININE 0.4 mg/dL (0.5-0.9); ESTIMATED GFR > 60; GLUCOSE 152 mg/dL (70-104); POTASSIUM 3.4 mmol/L (3.5-5.1); SODIUM 142 mmol/L (136-145); TCO2 25 mmol/L (25-35)
[2019-03-07] MEDS: PROTONIX IV SCH (12:02)
[2019-03-07] MEDS: SODIUM CHLORIDE 0.9% INJ SCH (12:02)
[2019-03-07] MEDS ORDERED: KLOR-CON PO ONE (14:50)
--- NOTE | 2019-03-07 16:36 | GASTROENTEROLOGY PROGRESS NOTE ---
DATE: 03/07/2019 SUBJECTIVE: Patient resting in bed. As per the patient's family at bedside, the patient is feeling better. She is moving her bowels. She has a colostomy in place since age 30. She denies any nausea or vomiting. Her abdominal pain is improved. OBJECTIVE: Vitals: Temperature 98.7 degrees, pulse rate 64, respiratory rate of 19, blood pressure 101/55, saturating 95% room air. Weight: Body weight of 134 pounds, BMI 24.5 kg/m2. General Appearance: Moderately built, moderately nourished, lying in bed, in no acute distress. HEENT: Mild pallor. No icterus. Neck is supple. Abdomen is soft, nontender, nondistended. She has a colostomy in the left lower quadrant. No rebound or guarding. Extremities: No cyanosis or clubbing. Neurologic: Alert, awake, oriented x3. DIAGNOSTIC STUDIES: Hemoglobin 11.7, hematocrit 36.3, white count 6.16, platelet count of 285,000. Sodium 142, potassium 3.4, chloride 107, bicarbonate 25, anion gap 10, BUN of 11, creatinine 0.4, calcium 8.6. CEA 0.8. TSH 0.96. Liver enzymes normal on 03/03/2019. Urinalysis has shown moderate leukocytes. Her urine culture showed no pathogenic growth. ASSESSMENT AND PLAN: 1. Small bowel obstruction. She is improved. She will continue on liquid diet and advance as tolerated. 2. History of colon cancer status post colostomy which was placed at age 30 in [employer]. She will need a colonoscopy. We will schedule her as an outpatient. She will see us in the office in 3 weeks after discharge. 3. Leukocytosis, resolved. 4. Gastrointestinal prophylaxis. PPIs. 5. Remote history of rectal cancer at age 30 status post abdominoperineal resection, sigmoid colorectal cancer requiring partial colectomy status post chemotherapy and radiation and left- sided colostomy since age 30. She was admitted for small bowel obstruction likely from adhesions. This has resolved with supportive care. The patient will likely be discharged in a day or 2. She will follow up as an outpatient. The above plan was discussed with the patient and family at bedside and all questions were answered. Thank you for allowing us to participate in the care of this patient. Please call us with any further questions. cc: MD Evangelist Post MD MTDD
[2019-03-08] MEDS ORDERED: PROTONIX PO SCH (12:30)
--- NOTE | 2019-03-08 13:34 | DISCHARGE SUMMARY ---
ADMISSION DATE: 03/04/2019 DISCHARGE DATE: 03/07/2019 PRINCIPAL DIAGNOSIS: Small bowel obstruction probably secondary to adhesions. SECONDARY DIAGNOSIS: 1. History of rectal cancer status post abdominoperineal resection and sigmoid CRC requiring partial colectomy and status post chemoradiation. 2. Hypokalemia. PHYSICIAN: David Urias MD. HOSPITAL COURSE: Kay Trinh is a 53-year-old female, and she was admitted to the hospital because of abdominal pain along with nausea and vomiting. She was diagnosed as having small bowel obstruction. She did respond to conservative treatment. The symptoms seem to have resolved. She is tolerating orally now. At this time, patient is stable. She can now be discharged home. During my evaluation today the vital signs as follows: Temperature 98.7 degrees, pulse 64, respiratory rate 19, blood pressure 101/55, oxygen 99%. HEENT: Atraumatic, normocephalic. Cardiovascular: S1, S2. Respiratory system: Has evidence of good air entry bilaterally. Abdomen: Soft, nontender. No masses felt. Extremities: No evidence of edema. Central nervous system: No obvious focal deficit noted. PLAN: Discharge home today to follow up with oncologist in the outpatient. Also follow up with a data collection technician in the outpatient for colonoscopy in the outpatient setting. cc: Evangelist Edwards MD
== END 2019-03-07 17:07 | disposition home or self-care (01) | DRG 389 ==
LOC: ED 21:37 → 3N 03-04 10:17 → SUATTDRO 03-04 10:17
PROVIDERS: ATTEND Internal Medicine
CPT/HCPCS: 71010; 71045; 74000; 74018; 74022; 74177; 80048; 80053; 81001; 81025; 82150; 82378; 82550; 83690; 83735; 84443; 85025; 87088; 96361; 96372; 96374; 96375; 96376; 99285; A9270; C9113; J0500; J0690; J2270; J2405; J2550; J3480; J7030; Q9967; S0164